=== PATIENT | female | born 1975 | race Caucasian/White ===

== ENCOUNTER 2022-10-06 08:53 | Emergency (ER) | payer OTHER, SELFPAY ==
[2022-10-06 09:02] VITALS: BP 148/78; PULSE 86; RESP 20; TEMP 36.8; O2SAT 98; BMI 29.0
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
--- NOTE | 2022-10-06 09:48 | PC.NURSE ---
PT WAS SEEN AND DISCHARGED BY PROVIDER
== END 2022-10-06 09:40 | disposition home or self-care (01) ==
PROVIDERS: Emergency Provider Emergency Medicine; PCP Physician Assistant Medical
DX: S09.90XA Unspecified injury of head, initial encounter (principal); V49.9XXA Car occupant (driver) (passenger) injured in unspecified traffic accident, initial encounter; Y93.9 Activity, unspecified; Y92.410 Unspecified street and highway as the place of occurrence of the external cause; Y99.9 Unspecified external cause status
CPT/HCPCS: 99281